=== PATIENT | female | born 1950 | race Caucasian/White ===

== ENCOUNTER 2023-01-21 09:49 | Outpatient (CLI) | payer MEDICARE, BC | END 2023-01-21 09:50 | disposition home or self-care (01) | LOC: CSHMAMMO 09:49 | PROVIDERS: ATTEND Family Medicine | DX: Z12.31 Encounter for screening mammogram for malignant neoplasm of breast (principal) | CPT/HCPCS: 77063; 77067 ==

== ENCOUNTER 2024-01-25 09:18 | Outpatient (CLI) | payer MEDICARE | END 2024-01-25 09:19 | disposition home or self-care (01) | LOC: CSHMAMMO 09:18 | PROVIDERS: ATTEND Family Medicine | DX: Z12.31 Encounter for screening mammogram for malignant neoplasm of breast (principal) | CPT/HCPCS: 77063; 77067 ==